=== PATIENT | female | born 1965 | race Caucasian/White ===

== ENCOUNTER 2021-09-20 14:43 | Emergency (ER) | payer OTHER ==
[~2021-09-20] VITALS: Ht 160 cm; Wt 101.2 kg
[2021-09-20] MEDS ORDERED: TOPROL XL50 M1 PO (14:57)
[2021-09-20] MEDS ORDERED: GLUMETZA1000 MG PO (14:57)
[2021-09-20] MEDS ORDERED: LEVO-T200 MCG PO (14:58)
[2021-09-20] MEDS ORDERED: NEURONTIN300 MG PO (14:59)
[2021-09-20] MEDS ORDERED: ACID REDUCER20 M1 PO (14:59)
[2021-09-20] MEDS ORDERED: JANUVIA25 MG PO (15:00)
[2021-09-20] MEDS ORDERED: NORVASC2.5 M1 PO (15:00)
[2021-09-20] MEDS ORDERED: CEPHALEXIN500 MG PO (15:47)
== END 2021-09-20 16:49 | disposition home or self-care (01) ==
LOC: ER 14:43
DX: L03.012 Cellulitis of left finger (principal); E03.9 Hypothyroidism, unspecified; I10 Essential (primary) hypertension; E11.21 Type 2 diabetes mellitus with diabetic nephropathy; Z79.84 Long term (current) use of oral hypoglycemic drugs; L02.512 Cutaneous abscess of left hand